=== PATIENT | female | born 1995 | race Two or more races ===

== ENCOUNTER 2021-06-01 09:22 | Emergency (ER) | payer OTHER ==
[2021-06-01 10:38] VITALS: BP 110/71
--- NOTE | 2021-06-01 10:44 | ED Physician Documentation ---
PD HPI UPPER EXT INJURY - Stated complaint Stated Complaint: RT HAND INJURY - Chief complaint Chief Complaint: Ext Problem - History obtained from History obtained from: Patient - History of Present Illness Location: Right, Hand Type of injury: Crush (car door) Where injury occurred: Home Timing - onset: How many hours ago (2) Timing - duration: Hours (2) Timing - details: Abrupt onset Pain level max: 8 Pain level now: 5 Improved by: Rest, Ice, Immobilization Worsened by: Moving, Palpating Associated symptoms: Swelling Contributing factors: No: Anticoagulated - Additonal information Additional information: pt is right handed Review of Systems Constitutional: denies: Fever, Chills : denies: Now EGA PD PAST MEDICAL HISTORY - Past Medical History Past Medical History: No - Past Surgical History Past Surgical History: No - Present Medications Home Medications: Ambulatory Orders Medication Instructions Recorded Confirmed No Known Home Medications 06/01/21 06/01/21 - Allergies Allergies/Adverse Reactions: Allergies Allergy/AdvReac Type Severity Reaction Status Date / Time No Known Drug Allergies Allergy Verified 06/01/21 10:38 - Living Situation Living Situation: reports: With family Living Arrangement: reports: At home - Social History Does the pt have substance abuse?: No PD ED PE NORMAL - Vitals Vital signs reviewed: Yes - General General: Alert and oriented X 3, No acute distress - HEENT HEENT: Moist mucous membranes - Derm Derm: Warm and dry - Extremities Extremities: Other (Swelling and bruising to the right index finger, PIP joint. Limited range of motion secondary to pain. Also slight pain to the middle finger at the PIP joint. Minimal swelling. Neurovascular intact. ) - Neuro Neuro: Alert and oriented X 3 Results - Vitals Vitals: Vital Signs - 24 hr 06/01/21 10:15 Temperature 36.3 C L Heart Rate 75 Respiratory 16 Rate Blood Pressure 110/71 O2 Saturation 100 Oxygen O2 Source Room air - Rads (name of study) Right hand x-ray Radiology: Final report received, EMP read contemporaneously, See rad report (No acute abnormality) PD MEDICAL DECISION MAKING - ED course Complexity details: reviewed results, considered differential, d/w patient ED course: No acute findings on x-ray of the hand. Right index finger and right middle finger crush injury. Placed in a foam finger splint for comfort. Given Motrin for pain. Patient counseled regarding signs and symptoms for which I believe and urgent re-evaluation would be necessary. Patient with good understanding of and agreement to plan and is comfortable going home at this time This document was made in part using voice recognition software. While efforts are made to proofread this document, sound alike and grammatical errors may occur. Departure - Departure Disposition: 01 Home, Self Care Clinical Impression: Contusion of finger of right hand Qualifiers: Encounter type: initial encounter Finger: index finger Damage to nail status: without damage Qualified Code(s): S60.021A - Contusion of right index finger without damage to nail, initial encounter Condition: Good Instructions: ED Crush Injury Finger No Fx Follow-Up: your,doctor in 1 week if not better [Other] Comments: Thankfully your x-ray does not show any acute fractures today. Please follow-up with your doctor for further care. Return if you worsen. Discharge Date/Time: 06/01/21 11:18
--- NOTE | 2021-06-01 10:57 | XRAY Report ---
PROCEDURE: Hand 3 View RT INDICATIONS: car door was shut on hand fingers TECHNIQUE: 3 views of the hand(s) acquired. COMPARISON: None FINDINGS: Bones: No fractures or dislocations. No suspicious bony lesions. Soft tissues: No suspicious soft tissue calcifications. IMPRESSION: No evidence acute bony abnormality of the right hand. If clinical suspicion and/or symptoms persist, further assessment with repeat plain films or advanced imaging (e.g., CT, MRI, or bone scan) may be helpful for further assessment. Reviewed by: Osiel Lama MD on 06/01/2021 10:56 AM PDT Approved by: Osiel Lama MD on 06/01/2021 10:56 AM PDT Station ID: [id number]
== END 2021-06-01 11:18 | disposition home or self-care (01) ==
LOC: ED 09:22
DX: S60.021A Contusion of right index finger without damage to nail, initial encounter (principal); W23.1XXA Caught, crushed, jammed, or pinched between stationary objects, initial encounter; Y92.810 Car as the place of occurrence of the external cause
CPT/HCPCS: 99282; 99283

== ENCOUNTER 2022-01-12 21:01 | Emergency (ER) | payer OTHER ==
[2022-01-12 21:22] LABS: BASOPHILS # (AUTO) 0.1 10^3/uL (0.0-0.1); BASOPHILS % (AUTO) 0.8 %; EOSINOPHILS # (AUTO) 0.3 10^3/uL (0.0-0.7); HGB - HEMOGLOBIN 14.1 g/dL (12.0-16.0); LYMPHOCYTES # (AUTO) 2.8 10^3/uL (1.5-3.5); LYMPHOCYTES % (AUTO) 30.9 %; MEAN CORPUSCULAR HEMOGLOBIN 30.9 pg (27.0-31.0); MEAN CORPUSCULAR HGB CONC 33.6 g/dL (32.0-36.0); MEAN CORPUSCULAR VOLUME 92.1 fL (81.0-99.0); MONOCYTES # (AUTO) 0.6 10^3/uL (0.0-1.0); MONOCYTES % (AUTO) 6.3 %; NEUTROPHILS # (AUTO) 5.3 10^3/uL (1.5-6.6); NEUTROPHILS % (AUTO) 58.8 %; PLT - PLATELET COUNT 266 10^3/uL (130-450); RED BLOOD COUNT 4.56 10^6/uL (4.20-5.40); RED CELL DISTRIBUTION WIDTH 13.1 % (12.0-15.0)
[2022-01-12 21:36] LABS: ALBUMIN 4.2 g/dL (3.2-5.5); ALBUMIN/GLOBULIN RATIO 1.3 (1.0-2.2); BILIRUBIN,TOTAL 0.3 mg/dL (0.2-1.0); CALCIUM 9.2 mg/dL (8.5-10.3); CREATININE 0.7 mg/dL (0.4-1.0); POTASSIUM 4.2 mmol/L (3.5-5.0); TOTAL PROTEIN 7.5 g/dL (6.7-8.2)
--- NOTE | 2022-01-12 21:50 | ED Physician Documentation ---
PD HPI GI BLEED - Stated complaint Stated Complaint: VOMITED BLOOD - Chief complaint Chief Complaint: Abd Pain - History obtained from History obtained from: Patient - History of Present Illness Timing - onset: Enter time (1900), Today Timing - duration: Hours Timing - details: Abrupt onset, Now resolved Associated symptoms: Vomiting, Hematemesis Contributing factors: NSAID use Improved by: Vomiting Similar symptoms before: Has not had sx before Recently seen: Not recently seen - Additional information Additional information: Previously well 27-year-old female with no particular past medical history was in her home this evening at about 7:00 when she vomited some bright red blood. She had some mild discomfort to her stomach right before that happened and she was able to take a photograph of this blood on a paper towel that was saturated. Bright red. She denies any thing that look like coffee grounds. She had two additional episodes of vomiting the last being at 2030. She denies any current pain to her abdomen. She does state that she had a headache yesterday and took some ibuprofen. She believes she may have taken that without food. She does consume alcohol but has not consumed alcohol in more than 2 weeks. Her family history is negative for ulcer or GI bleeding. She does have a grandmother who of stomach cancer Review of Systems Constitutional: denies: Fever Eyes: denies: Decreased vision Ears: denies: Ear pain Nose: denies: Congestion Throat: denies: Sore throat Cardiac: denies: Chest pain / pressure, Palpitations Respiratory: denies: Dyspnea, Cough GI: reports: Nausea, Vomiting, Hematemesis. denies: Abdominal Pain : denies: Dysuria, Frequency Skin: denies: Rash Musculoskeletal: denies: Neck pain, Back pain, Extremity pain Neurologic: denies: Generalized weakness, Focal weakness, Numbness PD PAST MEDICAL HISTORY - Past Surgical History Past Surgical History: No - Present Medications Home Medications: Ambulatory Orders Medication Instructions Recorded Confirmed Sucralfate [Carafate] 1 gm PO ACHS #60 tablet 01/12/22 - Allergies Allergies/Adverse Reactions: Allergies Allergy/AdvReac Type Severity Reaction Status Date / Time No Known Drug Allergies Allergy Verified 06/01/21 10:38 - Social History Does the pt have substance abuse?: No PD ED PE NORMAL - Vitals Vital signs reviewed: Yes (normal ) - General General: Alert and oriented X 3, No acute distress, Well developed/nourished - HEENT HEENT: Atraumatic, PERRL, EOMI - Neck Neck: Supple, no meningeal sign, No bony TTP - Cardiac Cardiac: RRR, No murmur - Respiratory Respiratory: No respiratory distress, Clear bilaterally - Abdomen Abdomen: Normal bowel sounds, Soft, Non tender, Non distended, No organomegaly - Back Back: No CVA TTP, No spinal TTP - Derm Derm: Normal color, Warm and dry, No rash - Extremities Extremities: No deformity, No edema - Neuro Neuro: Alert and oriented X 3, glass tube bender 2-12 intact, No motor deficit, No sensory deficit, Normal speech Eye Opening: Spontaneous Motor: Obeys Commands Verbal: Oriented GCS Score: 15 - Psych Psych: Normal mood, Normal affect Results - Vitals Vitals: Vital Signs - 24 hr 01/12/22 01/12/22 21:07 22:00 Temperature 36.8 C Heart Rate 88 85 Respiratory 16 18 Rate Blood Pressure 124/75 121/86 H O2 Saturation 97 98 Oxygen O2 Source Room air - Labs Labs: Laboratory Tests 01/12/22 01/12/22 01/12/22 21:18 21:18 22:08 WBC 9.0 RBC 4.56 Hgb 14.1 Hct 42.0 MCV 92.1 MCH 30.9 MCHC 33.6 RDW 13.1 Plt Count 266 MPV 11.0 H Neut # (Auto) 5.3 Lymph # (Auto) 2.8 [place] # (Auto) 0.6 Eos # (Auto) 0.3 Baso # (Auto) 0.1 Absolute Nucleated RBC 0.00 Nucleated RBC % 0.0 Sodium 142 Potassium 4.2 Chloride 106 Carbon Dioxide 27 Anion Gap 9.0 BUN 17 Creatinine 0.7 Estimated GFR (MDRD) 99 Glucose 102 H Calcium 9.2 Total Bilirubin 0.3 AST 16 ALT 15 Alkaline Phosphatase 64 Total Protein 7.5 Albumin 4.2 Globulin 3.3 Albumin/Globulin Ratio 1.3 Lipase 33 Urine Color YELLOW Urine Clarity CLEAR Urine pH 7.5 Ur Specific [place] 1.020 Urine Protein NEGATIVE Urine Glucose (UA) NEGATIVE Urine Ketones NEGATIVE Urine Occult Blood NEGATIVE Urine Nitrite NEGATIVE Urine Bilirubin NEGATIVE Urine Urobilinogen 0.2 (NORMAL) Ur Leukocyte Esterase NEGATIVE Ur Microscopic Review NOT INDICATED Urine Culture Comments NOT INDICATED Urine HCG, Qual NEGATIVE PD MEDICAL DECISION MAKING - ED course Complexity details: reviewed results, re-evaluated patient, considered differential, d/w patient ED course: Previous well 27-year-old female with acute hematemesis has consumed some ibuprofen within the last 48 hours and she apparently did this without food. I suspect this may be the culprit. She has normal blood counts. She last vomited 1-1/2 hours ago. Here in the emergency department she is administered Carafate and Protonix orally. Departure - Departure Disposition: 01 Home, Self Care Clinical Impression: GI bleed due to NSAIDs Condition: Stable Instructions: ED Bleed UGI Stable Follow-Up: THEODORE MARLOW MD [Primary Care Provider] - Prescriptions: Sucralfate [Carafate] 1 gm PO ACHS #60 tablet Comments: Renetta, today it looks like you have some bleeding from your stomach. Your blood counts are normal and there is no evidence of excessive blood loss. I suspect this bleeding is related to your use of ibuprofen. The recommendation is to take some medications to help this heal up. I have prescribed some Carafate which has been E scribed to [facility] in [place]. This medicine is to aid in the healing of an ulcer. In addition there is recommendation to take a medication to reduce the acid in your stomach. Take either Pepcid AC or omeprazole both available [id number]. Treatment should be at least 2 weeks. The expectation is that you have resolution of your symptoms. You may have some black stool. If you find that you are weak and have a rapid pulse or feel faint return to the emergency department for further evaluation.
[2022-01-12] MEDS ORDERED: SUCRALFATE 1 GM/10 ML UDC PO STA (21:57)
[2022-01-12] MEDS ORDERED: PANTOPRAZOLE 40 MG TABLET PO STA (21:58)
[2022-01-12 23:20] LABS: BILIRUBIN,URINE NEGATIVE (NEGATIVE); GLUCOSE, URINE (UA) NEGATIVE (NEGATIVE); KETONES,URINE (UA) NEGATIVE (NEGATIVE); LEUKOCYTE ESTERASE, URINE NEGATIVE (NEGATIVE); NITRITE,URINE NEGATIVE (NEGATIVE); OCCULT BLOOD,URINE NEGATIVE (NEGATIVE); PH,URINE 7.5 PH (5.0-7.5); PROTEIN,URINE NEGATIVE (NEGATIVE); UROBILINOGEN,URINE 0.2 (NORMAL) E.U./dL (NORMAL)
[2022-01-12 23:22] LABS: CLARITY,URINE CLEAR (CLEAR); HCG UR QUAL NEGATIVE
[2022-01-12 23:50] VITALS: BP 116/74
== END 2022-01-12 23:50 | disposition home or self-care (01) ==
LOC: ED 21:01
DX: K92.2 Gastrointestinal hemorrhage, unspecified (principal); T39.315A Adverse effect of propionic acid derivatives, initial encounter
CPT/HCPCS: 36415; 80053; 81003; 81025; 83690; 85025; 99282; 99283; A9270; 81001; 87086

== ENCOUNTER 2022-12-24 20:41 | Outpatient (CLI) | payer OTHER ==
--- NOTE | 2022-12-25 10:39 | Ultrasound Report ---
PROCEDURE: Pelvic w/Transvaginal INDICATIONS: PELVIC PAIN TECHNIQUE: Real-time scanning was performed of the pelvic organs, with image documentation. Additional endovagi nal scanning was necessary due to incomplete visualization of the adnexal and endometrial structures by transabdominal scanning. COMPARISON: None. FINDINGS: Uterus: Uterus is retroverted and normal in size at 7.5 x 3.9 x 5.0 cm. The myometrium is heterogen eous. The endometrium measures 4.5 mm in combined thickness. IUD in satisfactory position Ovaries: The right ovary measures 2.7 x 2.1 x 3.1 cm, with a calculated ovarian volume of 9.2 cc. T he left ovary measures 3.2 x 2.1 x 3.3 cm, with a calculated ovarian volume of 11.4 cc. The ovaries have a normal sonographic appearance. Greater than 12 follicles can be seen in each ovary. No adnex al masses are seen. Other: No pathologic free abdominal or pelvic fluid. IMPRESSION: 1. IUD in satisfactory position. 2. Both ovaries have greater than 12 follicles. This can potentially correlate with a clinical diagno sis of polycystic ovaries. 3. No other significant findings. Reviewed by: Osiel Lama MD on 12/25/2022 10:38 AM PST Approved by: Osiel Lama MD on 12/25/2022 10:38 AM PST Station ID: [id number]
== END 2022-12-24 20:42 | disposition home or self-care (01) ==
LOC: DI 20:41
PROVIDERS: ATTEND Nurse Practitioner
DX: R10.2 Pelvic and perineal pain (principal); Z97.5 Presence of (intrauterine) contraceptive device